=== PATIENT | male | born 1970 | race Caucasian/White ===

== ENCOUNTER 2020-09-18 18:55 | Emergency (ER) | payer BC ==
[~2020-09-18] VITALS: Ht 185.4 cm; Wt 95.4 kg
[2020-09-18 19:05] VITALS: BP 181/100
[2020-09-18] MEDS ORDERED: LIDOCAINE 1% Multi-Dose 20 ML VIAL. INJ ONE (20:00)
[2020-09-18] MEDS ORDERED: DIPH,PERTUSS(ACELL),TET VAC/PF 0.5 ML SYRINGE. VAX IM ONE ×2 (20:08→20:30)
--- NOTE | 2020-09-18 20:11 | PHYS DOC ---
Past Medical History Past Medical History: Other Additional Past Medical Histor: sleep disorder Past Surgical History: No Surgical History Smoking Status: Never Smoker Alcohol Use: Occasionally General Adult EDM: Chief Complaint: TOE PROBLEM HPI: HPI: Patient is a 50 year old male who presents with patient states he was walking with his flip-flop today and stepped on a chain saw. The chainsaw was not going at the time. Patient has 1/2 inch avulsion that is superficial to the pad of the foot distal to the third toe but is not over any joints. Patient has a laceration to the fourth posterior toe at the middle phalanx. Patient rates his pain a 5 out of 10 at this time. It does not know when his last tetanus shot was. He has no past medical history except for sleeping disorder. Review of Systems: Review of Systems: Constitutional: Denies fever or chills. [] Eyes: Denies change in visual acuity. [] HENT: Denies nasal congestion or sore throat. [] Respiratory: Denies cough or shortness of breath. [] Cardiovascular: Denies chest pain or edema. [] GI: Denies abdominal pain, nausea, vomiting, bloody stools or diarrhea. [] : Denies dysuria. [] Musculoskeletal: Denies back pain or joint pain. +Left foot pain [] Integument: Denies rash. +Avulsion to Left foot and +laceration to toe[] Neurologic: Denies headache, focal weakness or sensory changes. [] Endocrine: Denies polyuria or polydipsia. [] Lymphatic: Denies swollen glands. [] Psychiatric: Denies depression or anxiety. [] Heart Score: Risk Factors: Risk Factors: DM, Current or recent (<one month) smoker, HTN, HLP, family history of CAD, obesity. Risk Scores: Score 0 - 3: 2.5% MACE over next 6 weeks - Discharge Home Score 4 - 6: 20.3% MACE over next 6 weeks - Admit for Clinical Observation Score 7 - 10: 72.7% MACE over next 6 weeks - Early Invasive Strategies Current Medications: Current Medications Medications (Trade) Dose Ordered Sig/Carson Start Time Stop Time Status Last Admin Dose Admin Lidocaine HCl (Lidocaine 1% 20ml Vial) 20 ml 1X ONCE 09/18/20 20:00 09/18/20 20:01 DC Allergies: Allergies: Allergies Coded Allergies Type Severity Reaction Last Updated Verified No Known Drug Allergies 10/21/15 No Physical Exam: PE: Constitutional: Well developed, well nourished, no acute distress, non-toxic appearance. [] HENT: Normocephalic, atraumatic, bilateral external ears normal, oropharynx moist, no oral exudates, nose normal. [] Eyes: PERRLA, EOMI, conjunctiva normal, no discharge. [] Neck: Normal range of motion, no tenderness, supple, no stridor. [] Cardiovascular:Heart rate regular rhythm, no murmur [] Lungs & Thorax: Bilateral breath sounds clear to auscultation [] Abdomen: Bowel sounds normal, soft, no tenderness, no masses, no pulsatile masses. [] Skin: Warm, dry, no erythema, no rash. Left 4th posterior toe at middle phalanx laceration. Avulsion laceration to pad of foot superficial and just distal to 3r d toe. [] Back: No tenderness, no CVA tenderness. [] Extremities: No tenderness, no cyanosis, no clubbing, ROM intact, no edema. [] Neurologic: Alert and oriented X 3, normal motor function, normal sensory function, no focal deficits noted. [] Psychologic: Affect normal, judgement normal, mood normal. [] EKG: EKG: [] Radiology/Procedures: Radiology/Procedures: [] Impression: [facility] [address] [place], [place] [id number] IMAGING REPORT Signed PATIENT: VINNIE JAVIER ACCOUNT: [id number] : 1970 LOCATION: ER AGE: 50 SEX: M EXAM STATUS: REG ER ORD. PHYSICIAN: AMARI CAPELLAN APRN REASON: laceration, steped on chain saw PROCEDURE: FOOT LEFT 3V Exam: Left foot 3 views INDICATION: Laceration, stepped on chainsaw TECHNIQUE: Frontal, lateral and oblique views of the left foot Comparisons: None FINDINGS: Mild soft tissue irregularity at the plantar surface of the foot at the level of the metatarsals. Bone mineralization is normal. No acute or healed fractures. Joint spaces are well-maintained. IMPRESSION: Irregularity at the plantar soft tissues at the level of the metatarsals without underlying osseous abnormality or radiopaque foreign body identified. Electronically signed by: Stan Mercado MD (09/18/2020 8:57 PM) [facility] DICTATED and SIGNED BY: STAN MERCADO MD DATE: 09/18/[id number] 0 Course & Med Decision Making: Course & Med Decision Making Pertinent Labs and Imaging studies reviewed. (See chart for details) See HPI. Alert and oriented x4. Ambulatory with a steady gait. Skin pink warm and dry. Patient can wiggle all of his toes and sensations are intact. Pedal pulse strong and present. Cap refill less than 2 seconds. Patient will be given a tetanus here in the ED. I will send him home on Cipro and Keflex. Patient is placed in a postoperative shoe. Laceration repair Location: Left posterior fourth toe Local anesthesia: 1% lidocaine Interrupted sutures/Internal sutures: 4 sutures using 4-0 Nerve/ligament/muscle damage: None Cleaning and irrigation: Chlorhexidine and saline The appropriate timeout was taken. The area was prepped and draped in the usual sterile fashion. The wound was copiously irrigated with normal saline and chlorhexidine. Patient tolerated well without complication. Dressing was applied to the area follow-up education is given to observe for signs and symptoms of infection, bleeding and to follow-up promptly if these occur. Patient can return in 48 hours for a wound recheck. Sutures to be removed in 7 to 10 days. [] Jorgeon Disclaimer: Dragon Disclaimer: This electronic medical record was generated, in whole or in part, using a voice recognition dictation system. Departure Departure Impression: Primary Impression: Laceration Disposition: 01 DC HOME SELF CARE/HOMELESS Condition: STABLE Referrals: CLAUDIA VOGEL APRN (PCP) Patient Instructions: Laceration Care, Adult Additional Instructions: Follow-up with primary care provider if needed. The sutures will be removed in 10 days. Remember you run the risk of the sutures popping open due to where the laceration is located on the back of your toe. Use caution. Ibuprofen or Tylenol for pain. You can also apply antibiotic ointment over the areas. Keep clean and covered. Watch for signs of infection. Scripts Ciprofloxacin Hcl (CIPRO) 500 Mg Tablet 1 TAB PO BID for 10 Days, #20 TAB 0 Refills Prov: AMARI CAPELLAN APRN 09/18/20 Cephalexin (CEPHALEXIN) 500 Mg Tablet 1 TAB PO TID, #30 TAB Prov: AMARI CAPELLAN APRN 09/18/20 AMARI CAPELLAN APRN Sep 18, 2020 20:11
[2020-09-18] MEDS ORDERED: CIPR500T94 PO (20:46)
[2020-09-18] MEDS ORDERED: CEPH500T PO (20:46)
--- NOTE | 2020-09-18 21:00 | RAD ---
Exam: Left foot 3 views INDICATION: Laceration, stepped on chainsaw TECHNIQUE: Frontal, lateral and oblique views of the left foot Comparisons: None FINDINGS: Mild soft tissue irregularity at the plantar surface of the foot at the level of the metatarsals. Bon e mineralization is normal. No acute or healed fractures. Joint spaces are well-maintained. IMPRESSION: Irregularity at the plantar soft tissues at the level of the metatarsals without underlying osseous a bnormality or radiopaque foreign body identified. Electronically signed by: Stan Aviles MD (09/18/2020 8:57 PM) [facility]
== END 2020-09-18 20:53 | disposition home or self-care (01) ==
LOC: ER 18:55
DX: S91.115A Laceration without foreign body of left lesser toe(s) without damage to nail, initial encounter (principal); W22.8XXA Striking against or struck by other objects, initial encounter; Y93.89 Activity, other specified; Y92.89 Other specified places as the place of occurrence of the external cause; Y99.8 Other external cause status
CPT/HCPCS: 12001; 73630; 90471; 90715; 99283; J3490